=== PATIENT | male | born 1960 | race African-American/Black ===

== ENCOUNTER 2022-04-22 09:45 | Outpatient (CLI) | payer BC, OTHER | END 2022-04-22 09:46 | disposition home or self-care (01) | LOC: RAD 09:45 | PROVIDERS: ATTEND Internal Medicine | DX: Z02.71 Encounter for disability determination (principal); M47.816 Spondylosis without myelopathy or radiculopathy, lumbar region | CPT/HCPCS: 71046; 72100 ==